=== PATIENT | male | born 1935 | race Asian ===

== ENCOUNTER 2022-05-17 14:05 | Inpatient (IN) | payer MEDICARE, OTHER ==
[~2022-05-17] VITALS: Ht 177.8 cm; Wt 76.0 kg
[2022-05-17] MEDS ORDERED: ETOMIDATE (2MG/ML) 20ML VIAL IV ONE (14:16)
[2022-05-17] MEDS ORDERED: SUCCINYLCHOLINE CHLORIDE 20 MG/ML 10ML VIAL IV ONE (14:16)
[2022-05-17] MEDS ORDERED: FUROSEMIDE 100 MG/10ML VIAL IV ONE (14:30)
[2022-05-17 15:06] LABS: Basophils # (auto) 0.1 10 ^3/uL (0-0.2); Basophils % (auto) 0.8 % (0.0-2.0); Eosinophils # (auto) 0.3 10 ^3/uL (0-0.8); Eosinophils % (auto) 3.1 % (0.0-7.0); Hematocrit 24.2 % (41.0-53.0); Hemoglobin 8.2 g/dL (13.5-17.5); Lymphocytes # (auto) 1.1 10 ^3/uL (0.4-5.4); Lymphocytes % (auto) 11.8 % (10.0-50.0); Mean Corpuscular Hemoglobin 34.4 pg (28.0-32.0); Mean Corpuscular Hgb Conc. 33.9 g/dL (32.0-36.0); Mean Corpuscular Volume 101.4 fL (80.0-100.0); Monocytes # (auto) 0.5 10 ^3/uL (0-1.3); Monocytes % (auto) 5.7 % (0.0-12.0); Neutrophils % (auto) 78.6 % (37.0-80.0); Nucleated Red Blood Cells % 0.1 %; Red Blood Cells 2.38 10^6/uL (4.5-5.90); Red Cell Distribution Width 15.2 % (11.8-14.3); White Blood Cell 8.9 10^3/uL (4.4-10.8)
[2022-05-17 15:14] LABS: Albumin 3.5 g/dL (3.4-5.0); BUN/Creatinine Ratio 13.2; Calcium 8.2 mg/dL (8.5-10.1); Magnesium 2.3 mg/dL (1.6-2.6)
[2022-05-17 15:17] LABS: Bilirubin, Total 0.5 mg/dL (0.2-1.0); Total Protein 7.3 g/dL (6.4-8.2)
[2022-05-17 15:20] LABS: Potassium 5.7 mmol/L (3.5-5.1)
[2022-05-17] MEDS ORDERED: CALCIUM GLUC 1,000mg/50ml-NS 50 ML IV ONE ×2 (15:30→16:30)
[2022-05-17] MEDS ORDERED: SODIUM BICARBONATE 8.4 % INJ 50ML VIAL IV ONE (15:30)
[2022-05-17 15:37] LABS: INR 1.09 (0.9-1.15); Partial Thromboplastin Time 30.6 sec (24.6-33.4)
[2022-05-17] MEDS ORDERED: ALBUTEROL MEDNEB 2.5 mg/3ml NEB NEB ONE (16:30)
[2022-05-17] MEDS ORDERED: InsuLIN REG 1unit/0.01ml Soln (100units/ml) IV ONE (16:30)
[2022-05-17] MEDS ORDERED: SODIUM BICARBONATE 8.4% INJ 50ML SYRINGE IV ONE (16:30)
[2022-05-17] MEDS ORDERED: SODIUM ZIRCONIUM CYCL 10 GM PAK PO ONE (16:30)
[2022-05-17] MEDS ORDERED: DEXTROSE (50%) 50ML SYRG IV ONE (16:30)
[2022-05-17] MEDS ORDERED: NITROGLYCERIN 0.4 MG SL TAB SL PRN (16:30)
[2022-05-17] MEDS ORDERED: MORPHINE SULFATE INJ 2 MG/ml SYRG IV PRN (16:30)
[2022-05-17] MEDS ORDERED: PANTOPRAZOLE 40 MG/10 ML VIAL INJ IV ONE (16:30)
[2022-05-17] MEDS ORDERED: ALBUTEROL SULF 2.5 MG/0.5ML(0.5%) NEB SOLN NEB ONE (16:55)
[2022-05-17] MEDS ORDERED: DEXTROSE 10% 250 ML IV ONE (20:30)
[2022-05-17] MEDS: HEPARIN SODIUM (PORCINE) 5000 UNITS/ML 1ML VIAL SC SCH (22:37)
[2022-05-17] MEDS ORDERED: NIFE1TAB31 PO (23:02)
[2022-05-17] MEDS ORDERED: CARV12.544 PO (23:02)
[2022-05-17] MEDS ORDERED: ATOR20TA50 PO (23:05)
[2022-05-17] MEDS ORDERED: BUMEX2MG (23:05)
[2022-05-18] VITALS (8 sets, daily range): BP systolic 126–183; BP diastolic 48–69
[2022-05-18] MEDS: CARVEDILOL 12.5 MG TAB PO SCH ×3 (00:34→22:01)
[2022-05-18] MEDS: NIFEdipine ER 30 MG TAB PO SCH ×3 (00:41→21:58)
[2022-05-18] MEDS ORDERED: SODIUM CHL 0.9% 1000 ML BAG XX ONE (07:00)
[2022-05-18 07:25] LABS: Hematocrit 22.4 % (41.0-53.0); Hemoglobin 7.8 g/dL (13.5-17.5); Mean Corpuscular Volume 100.9 fL (80.0-100.0); Red Blood Cells 2.22 10^6/uL (4.5-5.90)
[2022-05-18 07:27] LABS: Mean Corpuscular Hemoglobin 35.2 pg (28.0-32.0); Mean Corpuscular Hgb Conc. 34.9 g/dL (32.0-36.0); Red Cell Distribution Width 15.3 % (11.8-14.3); White Blood Cell 9.7 10^3/uL (4.4-10.8)
[2022-05-18 07:37] LABS: Band Neutrophils % (manual) 0; Basophils % (manual) 0 (0.0-2.0); Blast Cells 0; Metamyelocytes % 0; Myelocytes % 0; Promyelocytes % 0; Reactive Lymphocytes 0
[2022-05-18 07:47] LABS: Potassium 3.6 mmol/L (3.5-5.1)
[2022-05-18 07:54] LABS: Albumin 3.5 g/dL (3.4-5.0); Bilirubin, Total 0.5 mg/dL (0.2-1.0); Calcium 8.5 mg/dL (8.5-10.1); Total Protein 7.1 g/dL (6.4-8.2)
[2022-05-18] MEDS ORDERED: DEXTROSE 10% 250 ML IV ONE (08:36)
[2022-05-18] MEDS ORDERED: DEXTROSE 10% 250 ML IV SCH (09:45)
[2022-05-18] MEDS: ASPirin 81 mg TAB PO SCH (09:58)
[2022-05-18] MEDS: HEPARIN SODIUM (PORCINE) 5000 UNITS/ML 1ML VIAL SC SCH ×2 (10:00→21:47)
[2022-05-18 10:03] LABS: Eosinophils % (manual) 3 (0-7); Lymphocytes % (manual) 6 (10.0-50.0); Monocytes % (manual) 4 (0-12)
[2022-05-18] MEDS: PANTOPRAZOLE 40 MG/10 ML VIAL INJ IV SCH (10:04)
[2022-05-18] MEDS: FUROSEMIDE 100 MG/10ML VIAL IV SCH (17:53)
[2022-05-18] MEDS ORDERED: EPOETIN ALFA-EPBX 10,000 UNIT/1ML VIAL SC ONE (21:00)
[2022-05-18] MEDS: ATORVASTATIN 20 MG TAB PO SCH (21:58)
[2022-05-19 05:00] VITALS: BP 197/77
[2022-05-19] MEDS: FUROSEMIDE 100 MG/10ML VIAL IV SCH ×2 (05:49→18:55)
[2022-05-19 06:04] LABS: Hemoglobin 7.8 g/dL (13.5-17.5)
[2022-05-19 06:08] LABS: Hematocrit 22.7 % (41.0-53.0)
[2022-05-19 08:20] VITALS: BP 187/72
[2022-05-19] MEDS: PANTOPRAZOLE 40 MG/10 ML VIAL INJ IV SCH (08:25)
[2022-05-19] MEDS: ASPirin 81 mg TAB PO SCH (08:25)
[2022-05-19] MEDS: NIFEdipine ER 30 MG TAB PO SCH ×2 (08:26→21:36)
[2022-05-19] MEDS: CARVEDILOL 12.5 MG TAB PO SCH ×2 (08:28→21:37)
[2022-05-19] MEDS ORDERED: cloNIDine HCL 0.1 MG TAB PO PRN ×2 (08:45→16:00)
[2022-05-19 09:00] VITALS: BP 187/72
[2022-05-19] MEDS: cefTRIAXone 1GM/50ML D5W 50 ML IV SCH (09:48)
[2022-05-19] MEDS: HEPARIN SODIUM (PORCINE) 5000 UNITS/ML 1ML VIAL SC SCH ×2 (10:00→21:48)
[2022-05-19] MEDS: AZITHROMYCIN 500MG/ 250ML 250 ML IV SCH (10:35)
[2022-05-19 13:00] VITALS: BP 141/47
[2022-05-19] MEDS: ACETAMINOPHEN 500 MG TAB PO PRN (16:14)
[2022-05-19 17:00] VITALS: BP 132/51
[2022-05-19] MEDS ORDERED: EPOETIN ALFA-EPBX 4,000 UNIT/ML VIAL SC ONE (21:00)
[2022-05-19] MEDS: ATORVASTATIN 20 MG TAB PO SCH (21:36)
[2022-05-19 22:00] VITALS: BP 131/55
[2022-05-20 05:00] VITALS: BP 147/54
[2022-05-20] MEDS: ACETAMINOPHEN 500 MG TAB PO PRN (06:58)
[2022-05-20] MEDS: FUROSEMIDE 100 MG/10ML VIAL IV SCH ×2 (06:58→18:00)
[2022-05-20] MEDS ORDERED: AZIT500T66 PO (08:15)
[2022-05-20] MEDS ORDERED: FURO1TAB31 PO (08:15)
[2022-05-20 09:00] VITALS: BP 154/73
[2022-05-20] MEDS: cefTRIAXone 1GM/50ML D5W 50 ML IV SCH ×2 (09:00→09:52)
[2022-05-20] MEDS: CARVEDILOL 12.5 MG TAB PO SCH ×2 (09:51→22:00)
[2022-05-20] MEDS: NIFEdipine ER 30 MG TAB PO SCH ×2 (09:51→21:55)
[2022-05-20] MEDS: ASPirin 81 mg TAB PO SCH (09:51)
[2022-05-20] MEDS: PANTOPRAZOLE 40 MG/10 ML VIAL INJ IV SCH (09:52)
[2022-05-20] MEDS: HEPARIN SODIUM (PORCINE) 5000 UNITS/ML 1ML VIAL SC SCH ×2 (09:52→22:00)
[2022-05-20] MEDS: AZITHROMYCIN 500MG/ 250ML 250 ML IV SCH (10:00)
[2022-05-20 13:12] VITALS: BP 141/52
[2022-05-20 17:00] VITALS: BP_SYST 108; BP_SYST 147; BP_DIAS 57; BP_DIAS 60
[2022-05-20] MEDS ORDERED: LORazepam 0.5 MG TAB PO ONE (18:45)
[2022-05-20] MEDS ORDERED: EPOETIN ALFA-EPBX 4,000 UNIT/ML VIAL SC ONE (21:00)
[2022-05-20] MEDS: ATORVASTATIN 20 MG TAB PO SCH (21:54)
[2022-05-20 22:00] VITALS: BP 123/47
[2022-05-21 05:00] VITALS: BP 150/71
[2022-05-21] MEDS: FUROSEMIDE 100 MG/10ML VIAL IV SCH ×2 (06:00→18:00)
[2022-05-21 06:07] LABS: Hematocrit 20.1 % (41.0-53.0)
[2022-05-21 06:15] LABS: Hemoglobin 6.9 g/dL (13.5-17.5)
[2022-05-21 06:31] LABS: % Iron Saturation 18.1 % (20-55)
[2022-05-21] MEDS ORDERED: SODIUM CHL 0.9% 1000 ML BAG XX ONE (07:00)
[2022-05-21] MEDS: CARVEDILOL 12.5 MG TAB PO SCH ×2 (10:47→22:00)
[2022-05-21] MEDS: cefTRIAXone 1GM/50ML D5W 50 ML IV SCH (10:47)
[2022-05-21] MEDS: NIFEdipine ER 30 MG TAB PO SCH ×2 (10:47→21:58)
[2022-05-21] MEDS: ASPirin 81 mg TAB PO SCH (10:48)
[2022-05-21 12:15] VITALS: BP 156/56
[2022-05-21 12:43] LABS: Hepatitis A Ab IgM Negative; Hepatitis B Core IgM Negative; Hepatitis C Antibody Negative (Negative)
[2022-05-21 13:51] LABS: Hemoglobin 7.9 g/dL (13.5-17.5)
[2022-05-21 13:55] LABS: Hematocrit 23.6 % (41.0-53.0)
[2022-05-21] MEDS: AZITHROMYCIN 500MG/ 250ML 250 ML IV SCH (14:30)
[2022-05-21 16:14] VITALS: BP 139/45
[2022-05-21] MEDS ORDERED: EPOETIN ALFA-EPBX 10,000 UNIT/1ML VIAL SC ONE (21:00)
[2022-05-21] MEDS: ATORVASTATIN 20 MG TAB PO SCH (21:57)
[2022-05-21 22:00] VITALS: BP 155/49
[2022-05-21] MEDS: HEPARIN SODIUM (PORCINE) 5000 UNITS/ML 1ML VIAL SC SCH (23:15)
[2022-05-22 05:00] VITALS: BP 134/62
[2022-05-22] MEDS: FUROSEMIDE 100 MG/10ML VIAL IV SCH ×2 (06:00→18:00)
[2022-05-22] MEDS: ASPirin 81 mg TAB PO SCH (08:28)
[2022-05-22 08:30] VITALS: BP 173/50
[2022-05-22] MEDS: NIFEdipine ER 30 MG TAB PO SCH (08:42)
[2022-05-22] MEDS: CARVEDILOL 12.5 MG TAB PO SCH (08:42)
[2022-05-22] MEDS: cefTRIAXone 1GM/50ML D5W 50 ML IV SCH (08:44)
[2022-05-22] MEDS: AZITHROMYCIN 500MG/ 250ML 250 ML IV SCH (11:30)
== END 2022-05-22 18:50 | disposition home or self-care (01) | DRG 291 ==
LOC: ER 14:05 → TELE 16:20 → TELE-CENTR 23:24
PROVIDERS: ADMIT Nurse Practitioner Family; ATTEND Family Medicine
PROC: 0W993ZZ Drainage of Right Pleural Cavity, Percutaneous Approach (ICD-10-PCS; principal; 2022-05-18)
PROC: 5A1D70Z Performance of Urinary Filtration, Intermittent, Less than 6 Hours Per Day (ICD-10-PCS; 2022-05-18)
PROC: 5A1D70Z Performance of Urinary Filtration, Intermittent, Less than 6 Hours Per Day (ICD-10-PCS; 2022-05-18)
PROC: 05H933Z Insertion of Infusion Device into Right Brachial Vein, Percutaneous Approach (ICD-10-PCS; 2022-05-21)
PROC: B54MZZA Ultrasonography of Right Upper Extremity Veins, Guidance (ICD-10-PCS; 2022-05-21)
DX: I13.2 Hypertensive heart and chronic kidney disease with heart failure and with stage 5 chronic kidney disease, or end stage renal disease (principal); J18.9 Pneumonia, unspecified organism; J96.01 Acute respiratory failure with hypoxia; N18.6 End stage renal disease; E87.5 Hyperkalemia; I50.9 Heart failure, unspecified; E83.51 Hypocalcemia; I25.10 Atherosclerotic heart disease of native coronary artery without angina pectoris; Z20.822 Contact with and (suspected) exposure to COVID-19; D63.8 Anemia in other chronic diseases classified elsewhere; Z99.2 Dependence on renal dialysis; I25.2 Old myocardial infarction; Z82.49 Family history of ischemic heart disease and other diseases of the circulatory system; Z86.73 Personal history of transient ischemic attack (TIA), and cerebral infarction without residual deficits; Z91.199 Patient's noncompliance with other medical treatment and regimen due to unspecified reason; Z95.1 Presence of aortocoronary bypass graft
CPT/HCPCS: 36415; 36600; 71045; 76604; 76942; 80053; 80074; 82728; 82805; 83540; 83550; 83605; 83735; 83986; 84100; 84132; 84484; 85007; 85014; 85018; 85025; 85027; 85610; 85730; 86850; 86900; 86901; 87040; 87081; 87205; 87426; 89051; 90935; 93005; 94640; 96361; 96365; 96375; 99291; C9113; G0378; J0330; J0696; J1815